=== PATIENT | female | born 1995 | race American Indian/Alaskan Native ===

== ENCOUNTER 2018-09-09 21:30 | Emergency (ER) | payer MEDICAID ==
--- NOTE | 2018-09-09 22:33 | Emergency Department Report ---
Chief Complaint: Abdominal Pain Stated Complaint: CONSTANT CRAMPS ODOR WHEN URINATING Time Seen by Provider: 09/09/18 22:32 - HPI History of Present Illness: suprapubic abdominal cramping a couple of days foul odor/cloudy urine no vaginal discharge no fever no N/V MSE screening note: Focused history and physical exam performed. Due to findings the following was ordered:UA, urine preg ED Disposition for MSE Condition: Stable Instructions: Abdominal Pain (ED)
[2018-09-09 22:35] VITALS: BP 115/69
[2018-09-09 22:51] LABS: HCG Qualitative,Urine Negative (Negative)
[2018-09-09 22:53] LABS: Bacteria,Urine 2+ /HPF (Negative); Bilirubin,Urine NEG (Negative); Blood,Urine NEG (Negative); Color,Urine Yellow (Yellow); Hyaline Casts,Urine 1 /LPF; Protein,Urine <15 mg/dL mg/dL (Negative); Urobilinogen,Urine < 2.0 mg/dL (<2.0)
[2018-09-10] MEDS ORDERED: MACROBID PO ONE (01:04)
[2018-09-10] MEDS ORDERED: FLAGYL PO ONE (01:04)
--- NOTE | 2018-09-10 01:42 | Emergency Department Report ---
ED Female HPI - General Chief complaint: Abdominal Pain Stated complaint: CONSTANT CRAMPS ODOR WHEN URINATING Time Seen by Provider: 09/09/18 22:32 Source: patient Mode of arrival: Ambulatory Limitations: No Limitations - History of Present Illness Initial comments: Patient is a 23-year-old female who presents with dysuria frequency urgency 3 days with tissue or states Her menses for std she is for last 5 years and denies possibility for getting . No fevers no chills no longer vomiting . Tolerating by mouth intake without problems MD Complaint: dysuria Onset/Timin -: week(s) Radiation: suprapubic, LLQ Severity: moderate Severity scale (0 -10): 4 Quality: burning Consistency: intermittent Improves with: none, urination, menstrual period Worsens with: movement Are you Now?: No Last Menstrual Period: 08/27/18 EDC: 06/03/19 - Related Data Sexually active: Yes : 2 Para: 2 A: 0 Previous Rx's Medication Instructions Recorded Last Taken Type Ibuprofen 800 mg PO TID PRN #30 tablet 09/10/18 Unknown Rx Nitrofurantoin Monohyd/M-Cryst 100 mg PO BID #14 capsule 09/10/18 Unknown Rx [Macrobid 100 mg Capsule] metroNIDAZOLE [Flagyl] 500 mg PO BID 10 Days #20 tab 09/10/18 Unknown Rx Allergies Allergy/AdvReac Type Severity Reaction Status Date / Time No Known Allergies Allergy Unverified 09/09/18 21:33 ED Review of Systems ROS: Stated complaint: CONSTANT CRAMPS ODOR WHEN URINATING Other details as noted in HPI Constitutional: denies: chills, fever Eyes: denies: eye pain, eye discharge, vision change ENT: denies: ear pain, throat pain Respiratory: denies: cough, shortness of breath, wheezing Cardiovascular: denies: chest pain, palpitations Endocrine: no symptoms reported, intolerance to cold Gastrointestinal: denies: abdominal pain, nausea, diarrhea Genitourinary: urgency, dysuria, frequency, hematuria Musculoskeletal: denies: back pain, joint swelling, arthralgia Skin: denies: rash, lesions Neurological: numbness, confusion, abnormal gait. denies: headache, weakness, paresthesias, vertigo Psychiatric: denies: anxiety, depression Hematological/Lymphatic: denies: easy bleeding, easy bruising ED Past Medical Hx - Past Medical History Previous Medical History?: No - Surgical History Past Surgical History?: No - Social History Smoking Status: Never Smoker Substance Use Type: None - Medications Home Medications: Home Medications Medication Instructions Recorded Confirmed Last Taken Type Ibuprofen 800 mg PO TID PRN #30 tablet 09/10/18 Unknown Rx Nitrofurantoin Monohyd/M-Cryst 100 mg PO BID #14 capsule 09/10/18 Unknown Rx [Macrobid 100 mg Capsule] metroNIDAZOLE [Flagyl] 500 mg PO BID 10 Days #20 tab 09/10/18 Unknown Rx ED Physical Exam - General Limitations: No Limitations General appearance: alert, in no apparent distress - Head Head exam: Present: atraumatic, normocephalic - Eye Eye exam: Present: normal appearance, EOMI Pupils: Present: normal accommodation - ENT ENT exam: Present: normal exam, normal orophraynx, mucous membranes moist, TM's normal bilaterally, normal external ear exam - Neck Neck exam: Present: normal inspection, tenderness, meningismus, full ROM, lymphadenopathy, thyromegaly - Respiratory Respiratory exam: Present: normal lung sounds bilaterally. Absent: respiratory distress, wheezes, stridor, chest wall tenderness - Cardiovascular Cardiovascular Exam: Present: regular rate, normal rhythm, normal heart sounds, systolic murmur, diastolic murmur, gallop - GI/Abdominal GI/Abdominal exam: Present: soft, normal bowel sounds, mass, bruit, pulsatile mass. Absent: distended, tenderness, guarding, rebound, rigid - Extremities Exam Extremities exam: Present: normal inspection, full ROM, tenderness, joint swelling - Back Exam Back exam: Present: full ROM, tenderness. Absent: muscle spasm, paraspinal tenderness, vertebral tenderness, rash noted - Neurological Exam Neurological exam: Present: alert, oriented X3, CN II-XII intact, normal gait, reflexes normal - Psychiatric Psychiatric exam: Present: normal affect, normal mood, agitated, anxious, flat affect, manic, suicidal ideation - Skin Skin exam: Present: warm, dry, intact, normal color. Absent: rash ED Course Vital Signs 09/09/18 22:32 Temperature 97.9 F Pulse Rate 84 Respiratory 14 Rate Blood Pressure 115/69 O2 Sat by Pulse 99 Oximetry ED Medical Decision Making - EKG Data Rate: bradycardia - EKG Data When compared to previous EKG there are: no significant change Interpretation: no acute changes, normal EKG - Radiology Data Radiology results: report reviewed, image reviewed UA positive for WBCs leukocytes and nitrates plan treatment for UTI follow with PCP and to 3 days patient urinary dysuria she has not follow-up with [facility] this - Medical Decision Making 23-year-old female presents for abdominal pain dysuria frequency urgency 1 week Pain dysuria frequency urgency will tx with macrobid po bid x 7 days and flagy 500 mg po x 10 as request pt will follow up with pcp in 2-3 days Critical care attestation.: If time is entered above; I have spent that time in minutes in the direct care of this critically ill patient, excluding procedure time. ED Disposition Clinical Impression: UTI (urinary tract infection) Qualifiers: Urinary tract infection type: acute cystitis Hematuria presence: without hematuria Qualified Code(s): N30.00 - Acute cystitis without hematuria Disposition: TO HOME OR SELFCARE Is pt being admited?: No Does the pt Need Aspirin: No Condition: Stable Additional Instructions: follow up with your pcp n 3 days return to ed if symptoms worsen pt verbalized agreement and undersand of same. Prescriptions: metroNIDAZOLE [Flagyl] 500 mg PO BID 10 Days #20 tab Ibuprofen 800 mg PO TID PRN #30 tablet PRN Reason: pain Nitrofurantoin Monohyd/M-Cryst [Macrobid 100 mg Capsule] 100 mg PO BID #14 capsule Referrals: PRIMARY CARE, [Primary Care Provider] - 3-5 Days Forms: Work/School Release Form(ED) Time of Disposition: 02:17
== END 2018-09-10 02:31 | disposition home or self-care (01) ==
LOC: ED 21:30
DX: N30.00 Acute cystitis without hematuria (principal)
CPT/HCPCS: 81001; 81025